=== PATIENT | female | born 1985 | race Caucasian/White ===

== ENCOUNTER 2016-09-30 18:50 | Observation (INO) | payer MEDICAID ==
[2016-09-30 20:04] LABS: % IMMATURE GRANULYOCYTES 0.9 % (0.0-1.1); ADD DIFF? NO; ADD MORPH? NO; ADD SCAN? NO; ATYPICAL LYMPHOCYTE FLAG 0 (0-99); FRAGMENT RBC FLAG 0 (0-99); HEMATOCRIT 37.5 % (38.0-47.0); HEMOGLOBIN 12.4 g/dL (12.6-16.3); LEFT SHIFT FLG 10 (0-99); LIPEMIA HEMOLYSIS FLAG 80 (0-99); MEAN CELL HEMOGLOBIN 27.6 pg (27.9-34.1); MEAN CELL HEMOGLOBIN CONCENTR. 33.1 g/dL (32.4-36.7); MEAN CELL VOLUME 83.3 fL (81.5-99.8); MEAN PLATELET VOLUME 10.4 fL (8.7-11.7); PLATELET CLUMPS FLAG 10 (0-99); PLATELET COUNT 298 10^3/uL (150-400); RED CELL DISTRIBUTION WIDTH 14.3 % (11.5-15.2)
[2016-09-30 20:37] LABS: ALANINE AMINOTRANSFERASE 17 IU/L (9-52); ASPARTATE AMINOTRANSFERASE 15 IU/L (14-46); BILIRUBIN,TOTAL 0.4 mg/dL (0.1-1.4); BILIRUBIN-CONJUGATED 0.3 mg/dL (0.0-0.5); BILIRUBIN-UNCONJUGATED 0.1 mg/dL (0.0-1.1); CREATININE 0.7 mg/dL (0.6-1.0); GLOMERULAR FILTRATION RATE > 60; LACTATE DEHYDROGENASE 403 IU/L (313-618); URIC ACID 4.9 mg/dL (2.5-6.8)
--- NOTE | 2016-09-30 21:27 | GHP ---
[f rep st] PREOP HISTORY AND PHYSICAL DATE OF ADMISSION: 09/30/2016 ADMISSION DIAGNOSIS: 1. Intrauterine at 38-4/7 weeks' gestation. 2. Epigastric pain. 3. Contractions. HISTORY OF PRESENT ILLNESS: The patient is a 31-year-old, 2, para 0-0-1-0 who is 38-4/7 wee ks' gestation. She has been receiving care with the [facility] down [place]. The patient does live in [place] however. Of note, her is Dr. Porter's son. 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 The patient was at home and, over the last few days, has had worsening epigastric pain or gastroesophageal reflux symptoms. She has taken Zantac which had helpe d until tonight when it did help as much. She states it spreads across her upper abdomen. She denie s any headaches or changes in vision. She does have nausea, however, that is a current feature of t he 3rd trimester for her. She is feeling good movement. Denies any vaginal bleeding or loss of fluid. The patient states that she was taking Benadryl to help her sleep for the last couple nig hts, that she felt the baby was shrinkwrapped into her belly, so she stopped taking the Benadryl and feels that her amniotic fluid is now back to normal. The patient has had several prolonged tighten ing of her abdomen throughout the day. She is hydrating well. She presented to Labor and Delivery f or evaluation. Patient states her has been uncomplicated. Her blood pressures have been 122-126 over 76-82. She has had 1 elevated diastolic in the office of 88; however, she had negative protein urine dips. The patient's arrived to Labor and Delivery, and preeclampsia labs were obtaine d which were normal. Blood pressure is overall normal. She has had 2 elevated blood pressures of 140 s over 80s and 1 when she was sitting straight up and it was 150/94. Patient on arrival in Labor an d delivery states that the tightening and relaxing of her belly has stopped, and she denies any head ache or changes in vision at this time. MEDICAL HISTORY: Unremarkable. MEDICATIONS: vitamins, vitamin D, vitamin C, passion flower tincture, calcium and magnesiu m. SURGICAL HISTORY: Voluntary termination of . ALLERGIES: No known drug allergies. SOCIAL HISTORY: Patient is . 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 She denies tobacco or alcohol use. Enedelia nam did use CBD and pills 3 weeks ago for low back pain but does not use this on a regular basis. FAMILY MEDICAL HISTORY: Noncontributory. OBSTETRIC AND GYNECOLOGIC HISTORY: Her periods were regular. She is a 2, para 0-0-1-0. She had a voluntary termination of of a 10-week . Current has been uncompl icated. The patient does have a remote history of an abnormal Pap smear x2. Recent Paps have been negative. She has not had any procedures done on her cervix. She had tested positive for HPV but d enies any history of any other sexually transmitted diseases. PHYSICAL EXAMINATION: VITAL SIGNS: Stable. She has had 2 elevated blood pressures of 140s over 80 and a blood pressure of 160/94. Remainder of blood pressures are 130s over 70s to low 80s. GENERAL APPEARANCE: Alert and oriented x3. PSYCH: Appropriate affect. NECK: Her trachea is midline and there is no thyromegaly. LUNGS: Clear to auscultation bilaterally. HEART: Regular rate and rhythm with no murmurs. ABDOMEN: Gravid, nondistended, nontender. EXTREMITIES: No calf tenderness. She does have a slight amount of lower extremity edema. She does have 3+ DTRs but, per patient, this is very normal for her. CERVICAL: Deferred. DIAGNOSTIC STUDIES: heart tracing is category 1, appropriate, positive accelerations and reac tive on NST. She is not having any contractions on the monitor. White blood count is 11.3, hemoglob in is 12.4, hematocrit is 37.5, platelets are 295. Creatinine is 0.7. Uric acid is 4.9. AST is 15, ALT is 17. LDH is 403. Patient's type and screen is still pending. The patient states she is Rh ne gative but has declined RhoGAM in this . REVIEW OF SYSTEMS: The 10-point review of systems is negative except for the pertinent positives no edvin above. ASSESSMENT AND PLAN: A 31-year-old, 2, para 0-0-1-0 who is 38-4/7 weeks' gestation, who pre sented for epigastric pain which has improved and contractions which have resolved. We did discuss that she has had 2 elevated blood pressures and would met criteria for induction of labor for gestat ional hypertension. Her urine protein was negative and her preeclampsia labs were negative. We had a long discussion about preeclampsia signs and symptoms. We also discussed kick counts and labor p recautions. The patient has been receiving care with the midwives at [place] and [facility] she has been very unimpressed with her care and is considering having a home with one of h er friends or transferring to our office. We had a long discussion about indications for induction o f labor. I did offer patient induction of labor, but she decline at this time. We discussed kick c ounts, labor precautions and preeclampsia precautions. The patient is going to follow up with her kenzie luo in a week and, if symptoms worsen, she will return to labor and delivery. /[id number]/MODL
== END 2016-09-30 21:10 | disposition home or self-care (01) ==
LOC: FLD 18:50
PROVIDERS: ADMIT Obstetrics & Gynecology; ATTEND Obstetrics & Gynecology
DX: O99.89 Other specified diseases and conditions complicating pregnancy, childbirth and the puerperium (principal); R10.13 Epigastric pain; Z3A.38 38 weeks gestation of pregnancy
CPT/HCPCS: 59025; G0378

== ENCOUNTER → 2016-10-28 | Outpatient (CLI) | payer MEDICAID | LOC: FLACT 10:36 | PROVIDERS: ATTEND Obstetrics & Gynecology | DX: O92.13 Cracked nipple associated with lactation (principal) | CPT/HCPCS: G0463 ==